=== PATIENT | female | born 1985 | race African-American/Black ===

== ENCOUNTER 2025-10-22 20:21 | Emergency (ER) | payer MEDICAID ==
[~2025-10-22] VITALS: Ht 172.7 cm; Wt 100.0 kg
[2025-10-22 20:28] VITALS: O2SAT 97
[2025-10-22] MEDS: OLANZAPINE 10 MG/VIAL IM ONE (21:39)
[2025-10-23 04:06] LABS: BASOPHILS % 1.2 % (0.0-2.0); EOSINOPHILS % 1.6 % (0.0-5.0); HEMATOCRIT. 39.1 % (36.0-48.0); HEMOGLOBIN. 13.1 g/dL (12.0-16.0); LYMPHOCYTES % 28.9 % (20.0-50.0); MEAN PLATELET VOLUME 10.7 fl (7.4-10.4); MONOCYTES % 7.9 % (2.0-8.0); NEUTROPHILS % 60.4 % (40.0-76.0); PLATELET 204 x1000/uL (130-400); RED BLOOD CELL COUNT 4.17 mill/uL (4.2-5.4); RED CELL DISTRIBUTION WIDTH 14.2 % (11.6-14.6)
[2025-10-23 04:27] LABS: CREATININE 0.6 mg/dL (0.6-1.0); UREA NITROGEN BLOOD 8 mg/dL (9-23)
[2025-10-23 04:28] LABS: ETHANOL BLOOD < 10 mg/dL (<10); PROTEIN TOTAL 7.1 g/dL (6.0-8.3)
[2025-10-23 04:29] LABS: ASPARTATE AMINOTRANSFERASE 18 IU/L (<34); BILIRUBIN DIRECT 0.1 mg/dL (<=3.0)
[2025-10-23 04:30] LABS: BILIRUBIN TOTAL 0.4 mg/dL (0.1-1.0)
[2025-10-23 04:42] LABS: HCG SCREEN NEGATIVE
[2025-10-23] MEDS: LORAZEPAM 2MG/ML UD SYRINGE IM NR (05:06)
[2025-10-23] MEDS: DIPHENHYDRAMINE 50MG/ML VIAL IM PRN (05:06)
[2025-10-23 05:49] LABS: CLARITY URINE CLOUDY (CLEAR); COLOR URINE YELLOW (YELLOW); GLUCOSE URINE NEGATIVE (NEGATIVE); KETONES URINE TRACE (NEGATIVE); LEUKOCYTE ESTERASE URINE NEGATIVE (NEGATIVE); NITRITE URINE NEGATIVE (NEGATIVE); OCCULT BLOOD URINE NEGATIVE (NEGATIVE); PH URINE 5.5 (4.5-8.0); PROTEIN URINE TRACE (NEGATIVE); SPECIFIC GRAVITY URINE 1.033 (1.005-1.030); UROBILINOGEN URINE 1.0 E.U./dL (0.2-1.0)
[2025-10-23 06:50] LABS: *AMPHETAMINES SCREEN URINE PRESUMPTIVE POSITIVE (NEGATIVE); *BARBITURATES SCREEN URINE NEGATIVE (NEGATIVE); *BENZODIAZEPINES SCREEN URINE NEGATIVE (NEGATIVE)
[2025-10-23 06:51] LABS: *COCAINE SCREEN URINE NEGATIVE (NEGATIVE); CANNABINOID URINE SCREEN PRESUMPTIVE POSITIVE (NEGATIVE); ECSTASY MDMA SCREEN URINE CONF.TEST INDICATED (NEGATIVE); METHADONE URINE SCREEN NEGATIVE (NEGATIVE); OPIATES URINE SCREEN NEGATIVE (NEGATIVE); PHENCYCLIDINE URINE SCREEN NEGATIVE (NEGATIVE)
[2025-10-23 07:17] LABS: RBC URINE NONE SEEN /hpf (0-2); SQUAMOUS EPITHELIAL CELL URINE FEW /lpf (RARE/1+)
[2025-10-23 07:18] LABS: BACTERIA URINE TRACE
[2025-10-23 20:45] VITALS: BP 135/73; PULSE 88; RESP 20; TEMP 36.9; O2SAT 100
== END 2025-10-23 20:50 ==
LOC: ER 20:21
DX: F23 Brief psychotic disorder (principal); F31.9 Bipolar disorder, unspecified; F41.9 Anxiety disorder, unspecified; R41.82 Altered mental status, unspecified; Z79.899 Other long term (current) drug therapy; Z20.822 Contact with and (suspected) exposure to COVID-19
CPT/HCPCS: 36415; 96372 ×2; 99285; 80076; 80305; 80048; 81003; 80307; 80329; 80320; 84703; 85025; 70450; 93005; 87426; J3490; J1200; J2060; Z7610; G0480